=== PATIENT | male | born 1960 | race Caucasian/White ===

== ENCOUNTER 2019-06-09 19:42 | Emergency (ER) | payer OTHER ==
[~2019-06-09] VITALS: Ht 170.2 cm; Wt 80.7 kg
[2019-06-09 19:50] VITALS: BP_SYST 129
--- NOTE | 2019-06-09 19:55 | NUR ---
Pt states he feels like having a BM. Unsuccessful attempt. Urine specimen collected.
--- NOTE | 2019-06-09 20:02 | NUR ---
Pt to restroom with second attempt to have a BM.
[2019-06-09] MEDS ORDERED: METO25TA6 PO (20:07)
[2019-06-09] MEDS ORDERED: LIP40 PO (20:07)
[2019-06-09] MEDS ORDERED: METF1000 PO (20:07)
--- NOTE | 2019-06-09 20:14 | NUR ---
Pt placed to ER bed 07, to gown. Report given to JOSE GUADALUPE Champagne.
--- NOTE | 2019-06-09 20:14 | NUR ---
patient arrived AOx4 from home with c/o abd pain since 7 pm. patient states pain is generalized to abd and worse LRQ and ULQ and in the pelvic area. patient has slow to normal active bowel sounds throughout abd and pain with palpation to ULQ and LRQ. Patient denies the ability passing gas and states he has loose stool since pain started. patient states its hard to pee aswell. no vomiting since arrival. no other complaint or injury otherwise stated. Addendum: 06/09/19 at 2019 by [email or web address] abd is round and soft.
--- NOTE | 2019-06-09 20:15 | NUR ---
# 20 gauge angiocath placed to LAC. Use of asceptic technique. Opsite placed over site. Blood return noted. Blood for lab drawn from site. Flushed with 10 cc of normal saline. No evidence of infiltration noted. Patient tolerated well.
[2019-06-09 20:17] LABS: BILIRUBIN,URINE 1+ (NEGATIVE); BLOOD, URINE 3+ (NEGATIVE); CLARITY/URINE CLEAR (CLEAR); COLOR,URINE YELLOW (YELLOW); GLUCOSE,URINE NEGATIVE (NEGATIVE); KETONES,URINE TRACE (NEGATIVE); LEUKOCYTE ESTERASE ,URINE NEGATIVE (NEGATIVE); NITRITE, URINE NEGATIVE (NEGATIVE); PROTEIN URINE TRACE (NEGATIVE)
--- NOTE | 2019-06-09 20:19 | NUR ---
ER at bedside examining patient.
[2019-06-09] MEDS ORDERED: NACL 0.9% 1,000 ML IV ONE (20:30)
[2019-06-09] MEDS ORDERED: ONDANSETRON HCL 4 MG/2 ML VIAL IVP ONE (20:30)
[2019-06-09] MEDS ORDERED: KETOROLAC TROMETHAMINE 30 MG VIAL IVP ONE (20:30)
[2019-06-09 20:35] LABS: BASOPHILS % (AUTO) 0.4 % (0.0-2.0); EOSINOPHILS # (AUTO) 0.1 K/uL (0.0-0.4); EOSINOPHILS % (AUTO) 0.8 % (0.0-4.0); HEMATOCRIT 42.1 % (36-54); HEMOGLOBIN 14.5 g/dL (14.0-18.0); LYMPHOCYTES # (AUTO) 1.8 K/uL (1.0-5.5); LYMPHOCYTES % (AUTO) 14.8 % (20.5-51.5); MEAN CORPUSCULAR HEMOGLOBIN 33 pg (27-31); MEAN CORPUSCULAR HGB CONC 34 % (32-36); MEAN CORPUSCULAR VOLUME 96 fL (79.0-98.0); MONOCYTES # (AUTO) 0.8 K/uL (0.0-1.0); NEUTROPHILS # (AUTO) 9.3 K/uL (1.8-7.7); PLATELET COUNT (AUTO) 178 K/uL (130-430); RED BLOOD CELL COUNT(AUTO) 4.37 MIL/uL (4.2-6.2); RED CELL DISTRIBUTION WIDTH 14.6 % (9.0-15.0); WHITE BLOOD COUNT (AUTO) 12.1 K/uL (4.8-10.8)
[2019-06-09 20:40] LABS: BACTERIA,URINE FEW /HPF (None Seen); RBC,URINE NONE SEEN /HPF (0-3); WBC,URINE 0-3 /HPF (0-3)
[2019-06-09 20:41] LABS: MUCUS,URINE None Seen /LPF (None Seen)
[2019-06-09 20:48] LABS: CALCIUM 9.9 mg/dL (8.4-11.0); CREATININE 1.34 mg/dL (0.55-1.30); POTASSIUM 3.6 mmol/L (3.5-5.1)
[2019-06-09 20:53] LABS: ALBUMIN 4.2 g/dL (3.4-4.8); TOTAL BILIRUBIN 0.8 mg/dL (0.0-1.0)
[2019-06-09] MEDS ORDERED: MORPHINE 2 MG/ML INJ. SYRINGE IVP ONE (22:00)
[2019-06-09 22:31] VITALS: BP_SYST 129
--- NOTE | 2019-06-09 22:31 | NUR ---
Patient given written and verbal discharge instructions and verbalizes understanding. ER MD discussed with patient the results and treatment provided. Patient in stable condition. ID arm band removed. IV catheter removed intact and dressing applied, no active bleeding. Rx of Tramadol, Motrin, Zofran given. Patient educated on pain management and to follow up with PMD. Pain Scale 0/10. Opportunity for questions provided and answered. Medication side effect fact sheet provided.
== END 2019-06-09 22:31 | disposition home or self-care (01) ==
LOC: SED 19:42
DX: N20.0 Calculus of kidney (principal); Z91.013 Allergy to seafood; Z79.84 Long term (current) use of oral hypoglycemic drugs; Z79.899 Other long term (current) drug therapy
CPT/HCPCS: 36415; 74176; 80053; 81000; 85025; 87040; 96374; 96375; 99284; J1885; J2270; J2405; J7030